=== PATIENT | male | born 1955 | race Caucasian/White ===

== ENCOUNTER → 2017-08-19 10:41 | Day surgery (SDC) | payer BC ==
[~2017-08-19 10:41] MED LIST: Diazepam TAB(*) 5 MG ONE; Heparin 2 UNITS/ML IVPREMIX* 2,000 ML IV ONE; Heparin(*) 1000 UNIT/ML 10 ML VIAL CATH LAB IV ONE; Iohexol 350 (CONTRAST) 200 ML MDV IV ONE; Lidocaine 1% INJ* 10 MG/ML 30 ML SDV ONE; Midazolam* 1 MG/ML 10 ML VIAL (10 MG) ONE; NS 0.9% 1000 ML* 1,000 ML IV SCH; VERAPAMIL 2.5 MG/ML 4 ML VIAL ONE; diPHENhydraMINE PO* 25 MG ONE; fentaNYL* 50 MCG/ML 2 ML VIAL (100 MCG VIAL) ONE; nitroGLYCERIN DRIP* 25,000 MCG/250 ML BTL ONE
[2017-08-19 15:09] VITALS: BP 135/68
--- NOTE | 2017-08-20 21:17 | CATH ---
CC: Sunita Ladd MD; Jose Frye MD * CARDIAC CATHETERIZATION REPORT: DATE OF PROCEDURE: 08/19/17 - [facility] CATH INDICATION FOR PROCEDURE: Asked by Dr. Frye, the patient's primary python consultant, to perform cardiac catheterization in light of the patient with progressive shortness of breath with exertion, with reported intermediate to high risk nuclear stress test with question of moderate sized area of severe ischemia to the lateral wall with normal LV function and increased ventricular ectopic activity with exercise. PROCEDURE: Coronary arteriography, left heart catheterization, left ventriculography. The patient was examined in the holding area where the risks and benefits of cardiac catheterization were explained. He understood them and wished to proceed. The right radial artery was assessed by ultrasound in the holding area and found to be acceptable for an approach. Approach: Right radial artery. Intravascular sheath: A 6-[place] Glidesheath. Diagnostic coronary arteriography catheter: For the right coronary artery, a 5 - [place] TIG 4 curve catheter; left coronary artery a 5-[place] FL 3.5 curve diagnostic catheter. Left heart catheter: A 5-[place] PIG Performa radial catheter. Closure device: A vasc band. MEDICATIONS GIVEN DURING THE CATHETERIZATION: Included Versed intravenously as well as radial artery mixture of 3000 units of heparin, 300 mcg of nitroglycerin , verapamil 3 mg. PROCEDURE IN DETAIL: The patient was brought to the cardiovascular laboratory where a formal time-out was performed. He was prepped and draped in the sterile fashion. Right radial artery was anesthetized. The area was anesthetized with 1% lidocaine and under ultrasound guidance, the right radial artery was entered and the sheath was placed. A diagnostic coronary angiography was performed followed by left heart catheterization and left ventriculography. A total of 36 cc of Omnipaque dye at a rate of 12 cc per second was utilized for this catheter and was then pulled across the aortic valve to recheck gradient. Following this, a vasc band was placed. The total contrast used was 110 cc of Omnipaque dye. The radiation exposure included 9 minutes of fluoro time. The air kerma radiation was 1144 milligray. The DAP radiation was 7255 microgray per meter square. RESULTS: Left heart catheterization - central aortic pressure recorded at 143/ 70 with a mean of 98. Left ventricular pressure of 148 over left ventricular end diastolic pressure of 22. LEFT VENTRICULOGRAPHY: Performed in the MARTINEZ projection revealed symmetric contraction of all areas of the ventricle. Of note, there was a run of ventricular ectopic activity that made overall assessment of LV function difficult. In general, the left ventricular contractility appeared to be approximately 55% to 60%. No significant mitral regurgitation was seen. CORONARY ARTERIOGRAPHY: A. Right coronary artery - a dominant vessel supplying a bifurcating PDA and one posterior left ventricular branch in addition to multiple acute marginal branches. There was mild proximal narrowing of the right coronary artery of 30%. The rest of the right coronary artery had minimal luminal irregularities, but no areas of significant obstruction. B. Left coronary artery: 1. Left main. Short in nature and widely patent with no obstruction. 2. Left anterior descending artery. 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 Past this point was the first diagonal branch which had no significant obstruction followed by a second diagonal branch with no significant stenosis. The mid portion of the LAD had minimal systolic milking noted suggesting mild muscle bridging. There was no significant compromise to this vessel. 3. Circumflex artery - a nondominant vessel supplying a thin bifurcating first obtuse marginal branch followed by a smaller caliber second bifurcating obtuse marginal branch. The third obtuse marginal branch was a large vessel followed by a low lying posterior left ventricular branch. There was minimal luminal irregularities noted, but no significant obstruction seen throughout the course of the vessel. OVERALL ASSESSMENT: No significant coronary artery disease with mild proximal LAD and proximal right coronary artery narrowing as noted above. Evidence of increased left ventricular end diastolic pressure suggesting decreased left ventricular compliance was noted. Overall LV function appeared to be normal, albeit a suboptimal ventriculogram due to ventricular ectopic activity. This information was shared with the patient's primary python consultant, Dr. Jose Frye who will be managing his medications. The patient will be seen in followup within a week to assess this radial artery wound site by myself. [id number]/[facility] #: [id number] [facility] [place] DIVISIONPrakash
== END | disposition home or self-care (01) ==
LOC: CHICATH 10:41
PROVIDERS: ATTEND Internal Medicine Cardiovascular Disease
DX: I25.118 Atherosclerotic heart disease of native coronary artery with other forms of angina pectoris (principal); R06.02 Shortness of breath; G47.33 Obstructive sleep apnea (adult) (pediatric); F17.290 Nicotine dependence, other tobacco product, uncomplicated; I25.9 Chronic ischemic heart disease, unspecified
CPT/HCPCS: 93005; 93458; A9270-GY; J1644; J2250; J3010